=== PATIENT | male | born 1970 | race Native Hawaiian/Other Pacific Islander ===

== ENCOUNTER 2016-08-31 18:26 | Emergency (ER) | payer SELFPAY ==
[2016-08-31 20:20] LABS: Basophils % (Auto) 0.3 % (0.0-1.8); Eosinophils % (Auto) 0.5 % (0.0-4.3); Hematocrit 39.2 % (35.5-45.6); Hemoglobin 13.4 gm/dl (11.8-15.2); Mean Corpuscular HGB Conc 34 % (32-34); Mean Corpuscular Hemoglobin 30 pg (28-32); Mean Corpuscular Volume 87 fl (84-94); Platelet Count 415 K/mm3 (140-440); Red Cell Distribution Width 13.1 % (13.2-15.2); White Blood Count 15.7 K/mm3 (4.5-11.0)
[2016-08-31 20:42] LABS: Alanine Aminotransferase 24 units/L (7-56); Albumin 3.5 g/dL (3.9-5); Alkaline Phosphatase 88 units/L (35-129); Anion Gap 19 mmol/L; BUN/Creatinine Ratio 21.42; Blood Urea Nitrogen 15 mg/dL (9-20); Calcium 8.9 mg/dL (8.4-10.2); Carbon Dioxide 23 mmol/L (22-30); Chloride 103.1 mmol/L (98-107); Glucose 130 mg/dL (75-100); Potassium 3.9 mmol/L (3.6-5.0); Sodium 141 mmol/L (137-145); Total Protein 6.9 g/dL (6.3-8.2)
[2016-08-31 20:46] LABS: Erythrocyte Sedimentation Rate 70 mm/Hr (0-20)
[2016-08-31 21:26] LABS: Bilirubin,Urine NEG (Negative); Blood,Urine NEG (Negative); Ketones,Urine NEG (Negative); Leukocyte Esterase,Urine NEG (Negative); Mucus,Urine FEW /HPF; Nitrite,Urine NEG (Negative); Protein,Urine <15 mg/dL mg/dL (Negative); Urobilinogen,Urine < 2.0 mg/dL (<2.0)
--- NOTE | 2016-09-01 02:09 | Emergency Department Report ---
ED General Adult HPI - General Chief complaint: Medical Clearance Stated complaint: ABNORMAL LABS Time Seen by Provider: 09/01/16 01:36 Source: patient Mode of arrival: Ambulatory Limitations: Language Barrier - History of Present Illness Initial comments: 45-year-old male presents to the emergency department after being sent by his primary physician for abnormal labs. Patient states he has been having right- sided neck pain for 3 weeks. He's been having fevers for the past one week. He states his primary doctor started him on anti-biotics, but he is not getting any better. Patient was sent to the emergency department for CT of the neck. He denies difficulty swallowing. He also denies nausea, vomiting, or diarrhea. There are no other complaints. -: Gradual, week(s) (3) Location: neck Radiation: non-radiation Severity scale (0 -10): 8 Quality: sharp Consistency: constant Improves with: none Worsens with: none Associated Symptoms: fever/chills Treatments Prior to Arrival: none - Related Data Previous Rx's Medication Instructions Recorded Last Taken Type Amoxicillin/K Clav Tab [Augmentin 1 tab PO Q12HR #14 tab 09/01/16 Unknown Rx 875 mg] Allergies Allergy/AdvReac Type Severity Reaction Status Date / Time No Known Allergies Allergy Verified 08/31/16 19:41 ED Review of Systems ROS: Stated complaint: ABNORMAL LABS Other details as noted in HPI Comment: All other systems reviewed and negative Constitutional: fever Musculoskeletal: as per HPI ED Past Medical Hx - Past Medical History Previous Medical History?: No - Surgical History Past Surgical History?: No - Family History Family history: no significant - Social History Smoking Status: Never Smoker Substance Use Type: None - Medications Home Medications: Home Medications Medication Instructions Recorded Confirmed Last Taken Type Amoxicillin/K Clav Tab [Augmentin 1 tab PO Q12HR #14 tab 09/01/16 Unknown Rx 875 mg] ED Physical Exam - General Limitations: Language Barrier General appearance: alert, in no apparent distress - Head Head exam: Present: atraumatic, normocephalic - Eye Eye exam: Present: normal appearance, PERRL, EOMI - ENT ENT exam: Present: normal exam, normal orophraynx, mucous membranes moist - Neck Neck exam: Present: normal inspection, full ROM. Absent: tenderness, lymphadenopathy - Respiratory Respiratory exam: Present: normal lung sounds bilaterally. Absent: respiratory distress - Cardiovascular Cardiovascular Exam: Present: regular rate, normal rhythm, normal heart sounds - GI/Abdominal GI/Abdominal exam: Present: soft, normal bowel sounds. Absent: distended, tenderness - Extremities Exam Extremities exam: Present: normal inspection, full ROM. Absent: tenderness - Back Exam Back exam: Present: normal inspection, full ROM. Absent: tenderness - Neurological Exam Neurological exam: Present: alert, oriented X3. Absent: motor sensory deficit - Skin Skin exam: Present: warm, dry, intact ED Course Vital Signs 08/31/16 08/31/16 09/01/16 19:36 19:41 00:41 Temperature 98.1 F 98.1 F Pulse Rate 96 H 96 H 100 H Respiratory 20 20 20 Rate Blood Pressure 129/80 145/100 Blood Pressure 129/80 [Right] O2 Sat by Pulse 98 98 99 Oximetry 09/01/16 01:44 Temperature 98.3 F Pulse Rate 104 H Respiratory 20 Rate Blood Pressure Blood Pressure 145/87 [Right] O2 Sat by Pulse 99 Oximetry ED Medical Decision Making - Lab Data Result diagrams: 08/31/16 20:10 08/31/16 20:10 - Radiology Data Radiology results: report reviewed, image reviewed CT of the neck with IV contrast is read as unremarkable. There is no evidence of abscess. - Medical Decision Making Lab and imaging results reviewed and discussed with the patient and family. Patient had been taking clindamycin without relief. Last will be discontinued. Patient will be started on oral Augmentin. Patient will be discharged home at this time to follow up with his primary care physician. - Differential Diagnosis pharyngitis, abscess, viral syndrome Critical care attestation.: If time is entered above; I have spent that time in minutes in the direct care of this critically ill patient, excluding procedure time. ED Disposition Clinical Impression: Neck pain on right side Disposition: DISCHARGED TO HOME OR SELFCARE Is pt being admited?: No Condition: Stable Instructions: Amoxicillin/Clavulanate Potassium (By mouth) Prescriptions: Amoxicillin/K Clav Tab [Augmentin 875 mg] 1 tab PO Q12HR #14 tab Referrals: PRIMARY CARE, [Primary Care Provider] - 3-5 Days Time of Disposition: 05:08
[2016-09-01] MEDS ORDERED: NACL ONE (02:52)
--- NOTE | 2016-09-01 03:40 | Cat Scan Report ---
FINAL REPORT PROCEDURE: CT NECK W CON TECHNIQUE: Computerized axial tomography of the soft tissue neck was performed following the IV injection of iodinated nonionic contrast. HISTORY: right sided neck pain with fever COMPARISON: No prior studies are available for comparison. FINDINGS: Skull and scalp: Normal. Paranasal sinuses: Normal. Nasopharynx: Normal . Oral cavity: Normal . Epiglottis/vallecula: Normal . Larynx/pyriform sinuses: Normal . Thyroid gland: Normal . Lymph nodes: None enlarged . Salivary glands: Normal . Upper thorax: Normal . IMPRESSION: Normal Examination
[2016-09-01 05:31] VITALS: BP 145/97
== END 2016-09-01 05:30 | disposition home or self-care (01) ==
LOC: ED 18:26
DX: M54.2 Cervicalgia (principal)
CPT/HCPCS: 36415; 70491; 80053; 81001; 85025; 85652; 99284; Q9967